=== PATIENT | male | born 1975 | race Caucasian/White ===

== ENCOUNTER 2020-02-05 08:37 | Emergency (ER) | payer BC ==
[~2020-02-05] VITALS: Ht 188 cm; Wt 90.8 kg
[2020-02-05 08:39] VITALS: BP 156/97
[2020-02-05] MEDS ORDERED: LIDOCAINE 1%-EPI 1:100K, 20ML ONE (09:26)
[2020-02-05] MEDS ORDERED: DIPH,PERTUSS(ACELL),TET VAC/PF 0.5 ML IM-VACC ONE ×2 (09:27→09:30)
[2020-02-05] MEDS ORDERED: LIDOCAINE 1%-EPI 1:100K, 20ML SQ ONE (09:30)
[2020-02-05] MEDS ORDERED: NEOSPORIN OINT. PKT 1 PACKET ONE (09:50)
[2020-02-05] MEDS ORDERED: ACETAMINOPHEN 325 MG TABLET ONE (09:56)
[2020-02-05] MEDS ORDERED: ACETAMINOPHEN 325 MG TABLET PO ONE (10:00)
[2020-02-05] MEDS ORDERED: HYDROcodone/APAP 5/325 TABLET PO ONE (10:30)
[2020-02-05] MEDS ORDERED: HYDROcodone/APAP 5/325 TABLET ONE (10:31)
== END 2020-02-05 12:15 | disposition home or self-care (01) ==
LOC: ED 08:58
DX: S01.81XA Laceration without foreign body of other part of head, initial encounter (principal); S09.90XA Unspecified injury of head, initial encounter; X58.XXXA Exposure to other specified factors, initial encounter; Y93.89 Activity, other specified; Y92.89 Other specified places as the place of occurrence of the external cause; Y99.8 Other external cause status
CPT/HCPCS: 12011; 12052; 70450; 70486; 90471; 90715; 99285